=== PATIENT | male | born 1985 | race Two or more races ===

== ENCOUNTER 2017-12-13 12:53 | Emergency (ER) | payer OTHER ==
[~2017-12-13] VITALS: Ht 175.3 cm; Wt 80.9 kg
[2017-12-13 12:56] VITALS: BP 128/82
[2017-12-13] MEDS ORDERED: METHOCARBAMOL 750 MG TABLET ONE (13:57)
[2017-12-13] MEDS ORDERED: KETOROLAC 30 MG/1 ML ONE (13:57)
[2017-12-13] MEDS ORDERED: METHOCARBAMOL 750 MG TABLET PO ONE (14:00)
[2017-12-13] MEDS ORDERED: KETOROLAC 30 MG/1 ML IM ONE (14:00)
== END 2017-12-13 14:39 | disposition home or self-care (01) ==
LOC: ED 14:33
DX: S39.012A Strain of muscle, fascia and tendon of lower back, initial encounter (principal); F17.210 Nicotine dependence, cigarettes, uncomplicated; X50.9XXA Other and unspecified overexertion or strenuous movements or postures, initial encounter; Y93.89 Activity, other specified; Y99.8 Other external cause status; Y92.89 Other specified places as the place of occurrence of the external cause
CPT/HCPCS: 72110; 96372; 99284; J1885

== ENCOUNTER 2017-12-16 23:44 | Emergency (ER) | payer OTHER ==
[~2017-12-16] VITALS: Ht 175.3 cm; Wt 82.7 kg
[2017-12-16 23:45] VITALS: BP 150/90
== END 2017-12-17 00:30 | disposition home or self-care (01) ==
LOC: ED 23:59
DX: K64.8 Other hemorrhoids (principal)
CPT/HCPCS: 99283

== ENCOUNTER 2018-03-18 14:42 | Emergency (ER) | payer OTHER ==
[~2018-03-18] VITALS: Ht 167.6 cm; Wt 81.7 kg
[2018-03-18 15:02] VITALS: BP 134/90
== END 2018-03-18 16:35 | disposition home or self-care (01) ==
LOC: ED 16:00
DX: G56.22 Lesion of ulnar nerve, left upper limb (principal)
CPT/HCPCS: 99284

== ENCOUNTER 2018-09-13 11:10 | Emergency (ER) | payer OTHER ==
[~2018-09-13] VITALS: Ht 175.3 cm; Wt 82.7 kg
--- NOTE | 2018-09-13 11:59 | NUR ---
Pt to room from lobby.
--- NOTE | 2018-09-13 12:03 | NUR ---
Pt c/o intermittent N/V/D since Sunday. Pt denies abd pain. Pt placed in gown, positioned for comfort in bed with warm blanket. Continuous oxygen and BP monitors applied, all safety measures observed.
--- NOTE | 2018-09-13 12:20 | NUR ---
Dr. Schultz at bedside to evaluate pt.
[2018-09-13 12:44] LABS: BASOPHILS # (AUTO) 0.04 x10^3/uL (0-0.1); BASOPHILS % (AUTO) 1 % (0-1); EOSINOPHILS # (AUTO) 0.19 x10^3/uL (0-0.4); EOSINOPHILS % (AUTO) 3 % (1-7); LYMPHOCYTES # (AUTO) 1.91 x10^3/uL (1-3.4); LYMPHOCYTES % (AUTO) 30 % (22-44); MD NO; MEAN CORPUSCULAR HEMOGLOBIN 29.7 pg (27.5-34.5); MEAN CORPUSCULAR HGB CONC 33.8 g/dL (33.2-36.2); MEAN PLATELET VOLUME 7.2 fL (7.4-10.4); MONOCYTES # (AUTO) 0.49 x10^3/uL (0.2-0.8); MONOCYTES % (AUTO) 8 % (2-9); NEUTROPHILS # (AUTO) 3.69 x10^3/uL (1.8-6.8); NEUTROPHILS % (AUTO) 58 % (42-75); PLATELET COUNT 292 x10^3/uL (130-400); RED BLOOD COUNT 5.47 x10^6/uL (4.38-5.82); RED CELL DISTRIBUTION WIDTH 13.9 % (9.4-14.8)
[2018-09-13 12:54] LABS: ALANINE AMINOTRANSFERASE 42 U/L (12-78); ALBUMIN 4.2 g/dL (3.4-5.0); ANION GAP 5 mmol/L (5-15); CALCIUM 9.1 mg/dL (8.5-10.1); CHLORIDE 108 mmol/L (98-107); CREATININE 1.14 mg/dL (0.7-1.3)
[2018-09-13 12:56] LABS: ALKALINE PHOSPHATASE 99 U/L (45-117); BILIRUBIN,TOTAL 0.9 mg/dL (0.2-1.0); TOTAL PROTEIN 7.6 g/dL (6.4-8.2)
--- NOTE | 2018-09-13 13:17 | NUR ---
break rn: pt in bed, nad, no needs at this time, up for recheck
--- NOTE | 2018-09-13 13:17 | NUR ---
break rn: MD at bedside to recheck
[2018-09-13 13:42] VITALS: BP 124/74
== END 2018-09-13 13:44 | disposition home or self-care (01) ==
LOC: ED 13:39
DX: K29.00 Acute gastritis without bleeding (principal); F17.200 Nicotine dependence, unspecified, uncomplicated
CPT/HCPCS: 36415; 74021; 80053; 83690; 85025; 99284

== ENCOUNTER 2018-09-17 12:03 | Emergency (ER) | payer OTHER ==
[~2018-09-17] VITALS: Ht 175.3 cm; Wt 82.0 kg
[2018-09-17 13:07] LABS: BASOPHILS # (AUTO) 0.02 x10^3/uL (0-0.1); BASOPHILS % (AUTO) 0 % (0-1); EOSINOPHILS # (AUTO) 0.15 x10^3/uL (0-0.4); EOSINOPHILS % (AUTO) 3 % (1-7); LYMPHOCYTES # (AUTO) 1.63 x10^3/uL (1-3.4); LYMPHOCYTES % (AUTO) 30 % (22-44); MD NO; MEAN CORPUSCULAR HEMOGLOBIN 29.4 pg (27.5-34.5); MEAN CORPUSCULAR HGB CONC 33.6 g/dL (33.2-36.2); MEAN CORPUSCULAR VOLUME 87.6 fL (81-97); MEAN PLATELET VOLUME 7.2 fL (7.4-10.4); MONOCYTES # (AUTO) 0.37 x10^3/uL (0.2-0.8); MONOCYTES % (AUTO) 7 % (2-9); NEUTROPHILS # (AUTO) 3.31 x10^3/uL (1.8-6.8); NEUTROPHILS % (AUTO) 61 % (42-75); PLATELET COUNT 286 x10^3/uL (130-400); RED BLOOD COUNT 5.58 x10^6/uL (4.38-5.82); RED CELL DISTRIBUTION WIDTH 13.4 % (9.4-14.8)
[2018-09-17 13:15] LABS: ALANINE AMINOTRANSFERASE 40 U/L (12-78); ALBUMIN 4.3 g/dL (3.4-5.0); ANION GAP 6 mmol/L (5-15); CALCIUM 9.2 mg/dL (8.5-10.1); CHLORIDE 106 mmol/L (98-107); CREATININE 1.16 mg/dL (0.7-1.3)
[2018-09-17 13:18] LABS: ALKALINE PHOSPHATASE 108 U/L (45-117); BILIRUBIN,TOTAL 1.5 mg/dL (0.2-1.0); TOTAL PROTEIN 7.7 g/dL (6.4-8.2)
--- NOTE | 2018-09-17 16:54 | NUR ---
TASK RN: PT AMBULATORY TO ROOM FROM LOBBY, UPRIGHT STEADY GAIT
--- NOTE | 2018-09-17 16:57 | NUR ---
TASK RN: PT SEEN IN ED ON SUNDAY, REC'D REFFERAL FOR GI. CALLED GI BUT WAITING FOR RETURN CALL. PT STATES THAT HE DOESN'T FEEL UP TO GOING TO WORK AND NEEDS A WORK NOTE. DENIES ABD PAIN OR VOMITING. DOES ADMIT TO NAUSEA AND POOR APPETITE.
[2018-09-17 16:58] VITALS: BP 130/86
--- NOTE | 2018-09-17 17:09 | NUR ---
BREAK RN: PT PRESENTS WITH CONTINUED NASUEA. WAS SEEN ON SUNDAY FOR SAME. STATES NO IMPROVEMENT. DENIES ABD PAIN. PT STATES CALLED GI. AWAITING RETURN CALL. PT ALSO DENIES CHANGES IN BM AND URINATION. PT SEEN IN PIT. RESULTS BACK. AWAITING EVAL AND FURTHER EVAL. WILL CONTINUE TO MONITOR.
[2018-09-17] MEDS ORDERED: ONDANSETRON ODT 4 MG PO ONE (17:30)
--- NOTE | 2018-09-17 17:41 | NUR ---
KRISTA RN: REPORT TO SAMIR EDEN RN.
[2018-09-17] MEDS ORDERED: ONDANSETRON ODT 4 MG ONE (17:45)
--- NOTE | 2018-09-17 18:30 | NUR ---
ALL RESULTS BACK AT THIS TIME, CHART UP FOR RECHECK
== END 2018-09-17 18:55 | disposition home or self-care (01) ==
LOC: ED 17:59
DX: K29.00 Acute gastritis without bleeding (principal); Z90.49 Acquired absence of other specified parts of digestive tract
CPT/HCPCS: 36415; 76700; 80053; 83690; 85025; 86677; 99284; Q0162

== ENCOUNTER 2018-11-04 20:04 | Emergency (ER) | payer OTHER ==
[~2018-11-04] VITALS: Ht 175.3 cm; Wt 80.3 kg
[2018-11-04 20:17] VITALS: BP 143/81
== END 2018-11-04 21:03 | disposition home or self-care (01) ==
LOC: ED 20:57
DX: M79.662 Pain in left lower leg (principal); M79.661 Pain in right lower leg; M25.562 Pain in left knee; M25.561 Pain in right knee; F17.210 Nicotine dependence, cigarettes, uncomplicated
CPT/HCPCS: 99282